=== PATIENT | female | born 1965 ===

== ENCOUNTER 2024-04-19 07:56 | Day surgery (SDC) | payer OTHER ==
[2024-04-19] MEDS ORDERED: MIDAZOLAM HCL 2 MG/2 ML VIAL IV ONE (13:15)
[2024-04-19] MEDS ORDERED: ONDANSETRON HCL 2 MG/ML VIAL IV ONE (13:15)
[2024-04-19] MEDS ORDERED: fentaNYL CITRATE 50 MCG/ML AMPUL IV PUSH ONE (13:15)
[2024-04-19] MEDS ORDERED: DIPHENHYDRAMINE HCL 50 MG/ML VIAL 1ML IV ONE (13:15)
== END 2024-04-19 14:45 | disposition home or self-care (01) ==
LOC: AMB-ENDOS 07:56
PROVIDERS: ATTEND Colon & Rectal Surgery
DX: D12.8 Benign neoplasm of rectum (principal); K57.30 Diverticulosis of large intestine without perforation or abscess without bleeding